=== PATIENT | female | born 1950 | race Hispanic/Latino ===

== ENCOUNTER → 2019-10-14 | Outpatient (CLI) | payer OTHER | END | disposition home or self-care (01) | LOC: RAH 13:39 | PROVIDERS: ATTEND Internal Medicine | DX: M19.042 Primary osteoarthritis, left hand (principal); M19.041 Primary osteoarthritis, right hand; M17.0 Bilateral primary osteoarthritis of knee; M25.742 Osteophyte, left hand; M25.741 Osteophyte, right hand; M21.832 Other specified acquired deformities of left forearm; M81.0 Age-related osteoporosis without current pathological fracture; M25.762 Osteophyte, left knee; M25.761 Osteophyte, right knee | CPT/HCPCS: 73130; 73562 ==